=== PATIENT | female | born 1995 | race Caucasian/White ===

== ENCOUNTER 2018-12-27 10:41 | Day surgery (SDC) | payer OTHER ==
[2018-12-26 16:41] VITALS: BMI 18.2
[2018-12-27] MEDS ORDERED: Midazolam HCl 2 mg/2 ml Vial ONE ×2 (11:15→12:06)
[2018-12-27 11:33] LABS: #Eosinphils 0.1 thou/uL (0.0-0.7); #Lymphocytes 2.2 thou/uL (1.20-3.40); #Monocytes 0.4 thou/uL (0.11-0.59); #Neutrophils 3.7 thou/uL (1.40-6.50); %Basophils 0.5 % (0.0-1.0); %Eosinophils 1.4 % (0.0-10.0); %Lymphocytes 34.6 % (21.0-51.0); %Monocytes 6.8 % (0.0-10.0); %Neutrophils 56.7 % (42.0-75.0); Hemoglobin 13.5 g/dL (12.0-16.0); Mean Corpuscular HGB CONC 34.5 g/dL (32.0-36.0); Mean Corpuscular Hemoglobin 31.7 pg (27.0-31.0); Mean Corpuscular Volume 91.8 fL (78.0-98.0); Mean Platelet Volume 7.6 fL (7.4-10.4); Platelet Count 220 thou/uL (130-400); RBC Distribution Width 10.9 % (11.5-14.5); Red Blood Cell (RBC) Count 4.25 mill/uL (4.20-5.40); White Blood Cell (WBC) Count 6.5 thou/uL (4.8-10.8)
[2018-12-27] MEDS ORDERED: Fentanyl 100 MCG/2 ML VIAL ONE (12:06)
[2018-12-27] MEDS ORDERED: Tranexamic Acid 1,000 MG/10 ML VIAL ONE (12:07)
[2018-12-27] MEDS ORDERED: Sodium Chloride 0.9% 100 ML ONE (12:08)
[2018-12-27] MEDS ORDERED: PROPOFOL 200 MG/20 ML VIAL ONE (16:43)
[2018-12-27] MEDS ORDERED: Ondansetron PF 4 MG/2 ML Vial ONE (16:43)
[2018-12-27] MEDS ORDERED: Ketorolac Tromethamine 30 MG/ML VIAL ONE (16:43)
[2018-12-27] MEDS ORDERED: Lidocaine 1% PF 5 ML VIAL ONE (16:43)
--- NOTE | 2018-12-28 10:02 | OP ---
DATE OF PROCEDURE: 12/27/2018 PREOPERATIVE DIAGNOSIS: Incomplete at 7 weeks. POSTOPERATIVE DIAGNOSIS: Incomplete at 7 weeks. PROCEDURE PERFORMED: Suction, dilation, and curettage. ANESTHESIA: General LMA. ORAL SURGERY TECHNICIAN SURGEON: None. ESTIMATED BLOOD LOSS: 20 mL. IVF: 300 mL of crystalloid. URINE OUTPUT: 50 mL of clear urine at the beginning. PATHOLOGY: Products of conception. COMPLICATIONS: None. DRAINS: None. FINDINGS: A small amount of products of conception, mobile, 6- to [id number] uterus, and no active bleeding at the conclusion of the procedure. DESCRIPTION OF PROCEDURE: The patient was taken to the operating room where general anesthesia was obtained without difficulty. The patient was prepped and draped in a sterile fashion in the dorsal lithotomy position. The speculum was placed in the vagina. The anterior lip of the cervix was grasped with a single-tooth tenaculum. The cervix was then progressively dilated with Mono dilators. A 7-mm suction curette was attached to the suction tubing, and maximum pressure of 50 mmHg was reached. The suction tubing was then passed into the uterine fundus, and while I performing a circular motion, suction was applied, and products of conception were removed, and sharp curettage was taken to the uterus at that point once no further products were returning until a gritty texture was noted in all uterine young. The suction was then passed once again, and there was minimal bleeding, and no further appearing products were passing. The suction was removed, and the uterus was observed. No active bleeding was occurring, and the fundus was massaged. All instruments removed out of the vagina. The patient tolerated the procedure well. Sponge, lap, and needle counts were correct x2. The patient was taken to recovery room in stable condition. Job ID: [id number]
== END 2018-12-27 14:20 | disposition home or self-care (01) ==
LOC: SDC 10:41
PROVIDERS: ATTEND Student in an Organized Health Care Education/Training Program
PROC: 10D17ZZ Extraction of Products of Conception, Retained, Via Natural or Artificial Opening (ICD-10-PCS; principal; 2018-12-27)
DX: O03.1 Delayed or excessive hemorrhage following incomplete spontaneous abortion (principal); Z79.2 Long term (current) use of antibiotics
CPT/HCPCS: 36415; 85025; 86850; 86870; 86900; 86901; 88305; J1885; J2001; J2250; J2405; J2704; J3010; J3490